=== PATIENT | female | born 1990 | race Caucasian/White ===

== ENCOUNTER 2018-08-22 20:11 | Emergency (ER) | payer BC ==
[2018-08-22] MEDS ORDERED: DIAZEPAM 5 MG TABLET PO ONE (21:28)
[2018-08-22] MEDS ORDERED: KETOROLAC TROMETHAMINE 60 MG/2 ML SDV IM ONE (21:28)
--- NOTE | 2018-08-22 21:33 | ER Document Report ---
ED General - General Chief Complaint: Stiff Neck Stated Complaint: NECK/UPPER BACK PAIN Time Seen by Provider: 08/22/18 20:36 Mode of Arrival: Ambulatory Information source: Patient Notes: Patient is an otherwise healthy 28-year-old female who presents with multiple complaints today. Patient reports severe pain at the top of her spine near the base of her neck. Patient is unsure if she had a specific injury but states that she is unable to really move her neck. Patient also reports body aches times 4 days with a stuffy nose and sneezing. Patient denies any fever. TRAVEL OUTSIDE OF THE [place] IN LAST 30 DAYS: No - Related Data Allergies/Adverse Reactions: codeine Adverse Reaction (Verified 08/22/18 20:15) Past Medical History - General Information source: Patient - Social History Smoking Status: Current Every Day Smoker Frequency of alcohol use: None Family History: Reviewed & Not Pertinent Patient has suicidal ideation: No Patient has homicidal ideation: No Renal/ Medical History: Reports: Hx Kidney Stones. Denies: Hx Peritoneal Dialysis Psychiatric Medical History: Reports: Hx Depression Past Surgical History: Reports: Hx Appendectomy, Hx Tonsillectomy - Immunizations Immunizations up to date: Yes Review of Systems - Review of Systems EENT: See HPI Musculoskeletal: See HPI -: Yes All other systems reviewed and negative Physical Exam - Vital signs Vitals: Temp Pulse Resp BP Pulse Ox 98.6 F 76 16 134/79 H 100 08/22/18 20:16 08/22/18 20:16 08/22/18 20:16 08/22/18 20:16 08/22/18 20:16 - Notes Notes: PHYSICAL EXAMINATION: GENERAL: Well-appearing, well-nourished and in no acute distress. HEAD: Atraumatic, normocephalic. EYES: Pupils equal round and reactive to light, extraocular movements intact, conjunctiva are normal. ENT: Nares patent, oropharynx clear without exudates. Moist mucous membranes. NECK: Normal range of motion, supple without lymphadenopathy LUNGS: Breath sounds clear to auscultation bilaterally and equal. No wheezes rales or rhonchi. HEART: Regular rate and rhythm without murmurs ABDOMEN: Soft, nontender, nondistended abdomen. No guarding, no rebound. No masses appreciated. Female : deferred Musculoskeletal: Normal range of motion, no pitting or edema. No cyanosis. Tenderness to palpation to posterior neck, no nuchal rigidity. NEUROLOGICAL: Cranial nerves grossly intact. Normal speech, normal gait. Normal sensory, motor exams PSYCH: Normal mood, normal affect. SKIN: Warm, Dry, normal turgor, no rashes or lesions noted. Course - Re-evaluation Re-evalutation: Physical examination is relatively unremarkable other than some point tenderness to the C-spine. Patient is requesting a CT. There is no nuchal rigidity. Patient has not had a fever. Very low suspicion of meningitis. CT cervical spine is negative for any acute injury. Patient reports relief of her pain after administration of muscle relaxers and IM Toradol. Patient will be discharged home in stable condition. - Vital Signs Vital signs: Temp Pulse Resp BP Pulse Ox 98.5 F 70 18 119/78 100 08/22/18 23:10 08/22/18 23:10 08/22/18 23:10 08/22/18 23:10 08/22/18 23:10 Discharge - Discharge Clinical Impression: Torticollis, Sinus congestion Condition: Stable Disposition: HOME, SELF-CARE Additional Instructions: Torticollis You have torticollis, often called "wry neck." This is due to spasm of neck muscles -- locking the neck into a crooked position. Many different problems can lead to torticollis, such as a minor injury, sleeping with tension on the neck, or inflammation in the glands of the neck. Torticollis is usually treated with heat to relax the neck muscles, but the physician may recommend cold packs if a minor injury is suspected as the cause. Muscle relaxing and antiinflammatory medicine are often prescribed. You may need a neck collar to support your head. Improvement is usually rapid. Usually, the neck can be moved fully within two days, although some pain may persist for a few weeks. Call the doctor at once if you worsen, or if you develop high fever, severe headache, numbness or weakness, or other alarming symptoms. UPPER RESPIRATORY ILLNESS: You have a viral infection of the respiratory passages -- a "cold." This common infection causes nasal congestion, drainage, and often sore throat and cough. It is highly contagious. The disease usually lasts about 10 to 14 days. There is no "cure" for the viral infection -- it must run its course. If there is a complication, such as bacterial infection in the nose, sinuses, middle ear, or bronchial tubes, antibiotics may be required. The antibiotics won't affect the virus. Drink plenty of fluids. A humidifier may help. An expectorant medication or decongestant may make you more comfortable. Use acetaminophen or ibuprofen for fever or aches. See the doctor if fever persists over two days, if there is any significant worsening of your symptoms, or if you simply fail to improve as expected. FOLLOW-UP CARE: If you have been referred to a physician for follow-up care, call the physician s office for an appointment as you were instructed or within the next two days. If you experience worsening or a significant change in your symptoms, notify the physician immediately or return to the Emergency Department at any time for re-evaluation. Please take the medications as prescribed. You may want to buy some over-the -counter Flonase to help your nasal symptoms. Take ibuprofen 600 mg every 6 hours for the next several days. Use the hydrocodone only for severe pain. You may take 1/2-1 tablet every 4 hours. Take the muscle relaxers as prescribed. Prescriptions: Methocarbamol [Robaxin 750 mg Tablet] 750 mg PO ASDIR PRN #40 tablet PRN Reason:
--- NOTE | 2018-08-22 22:18 | RADIOLOGY REPORT (SQ) ---
CT CERVICAL SPINE WITHOUT IV CONTRAST HISTORY: Stiffness. Neck pain. COMPARISON: None.. TECHNIQUE: CT scan of the cervical spine. This exam was performed according to our departmental dose-optimization program, which includes automated exposure control, adjustment of the mA and/or kV according to patient size and/or use of iterative reconstruction technique. FINDINGS: No acute fracture. Straightening of the normal cervical lordosis, which may be due to cervical collar, muscle spasm, or patient positioning. No static listhesis. Vertebral body heights and disc spaces are preserved. No significant canal stenosis. No prevertebral soft tissue swelling. IMPRESSION: No acute fracture or static listhesis.
[2018-08-22] MEDS ORDERED: HYDROCODONE/ACETAMINOPHEN 5-325 MG (6 TAB/ER DISP) PO PRN (22:42)
[2018-08-22 23:41] VITALS: BP 119/78
== END 2018-08-22 23:18 | disposition home or self-care (01) ==
LOC: ER 20:11
DX: M43.6 Torticollis (principal); R09.81 Nasal congestion; F17.200 Nicotine dependence, unspecified, uncomplicated
CPT/HCPCS: 99284; 96372; 72125; L0120; J1885